=== PATIENT | female | born 1985 | race American Indian/Alaskan Native ===

== ENCOUNTER 2017-10-03 19:05 | Emergency (ER) | payer OTHER ==
[2017-10-03] MEDS ORDERED: TYLENOL PO ONE (21:22)
[2017-10-03] MEDS ORDERED: TYLENOL ONE (21:24)
[2017-10-03 22:01] LABS: Hematocrit 45.9 % (30.3-42.9); Hemoglobin 14.8 gm/dl (10.1-14.3); Mean Corpuscular HGB Conc 32 % (30-34); Mean Corpuscular Hemoglobin 26 pg (28-32); Mean Corpuscular Volume 79 fl (79-97); Platelet Count 203 K/mm3 (140-440); Red Blood Count 5.81 M/mm3 (3.65-5.03); Red Cell Distribution Width 14.8 % (13.2-15.2)
[2017-10-03 22:15] LABS: BUN/Creatinine Ratio 23; Blood Urea Nitrogen 9 mg/dL (7-17); Calcium 8.8 mg/dL (8.4-10.2); Hemolysis Index 46
[2017-10-03 22:28] LABS: Basophils % (Manual) 0 % (0.0-1.8); Eosinophils % (Manual) 0 % (0.0-4.3); Total Cells Counted 100
[2017-10-03 22:29] LABS: Anisocytosis 1+; Poikilocytosis 1+
--- NOTE | 2017-10-03 22:59 | XRay Report ---
FINAL REPORT PROCEDURE: AP and lateral chest x-ray TECHNIQUE: AP and lateral chest radiographs were obtained. CPT 96875 HISTORY: fever COMPARISON: No prior studies are available for comparison. FINDINGS: Heart: Magnified although appears to be enlarged.. Mediastinum/Vessels: Normal. Lungs/Pleural space: Normal. Bony thorax: No acute osseous abnormality. Other: IMPRESSION: Cardiomegaly. No acute abnormalities are identified. No focal infiltrates are seen..
--- NOTE | 2017-10-04 06:27 | Emergency Department Report ---
ED General Adult HPI - General Chief complaint: Nausea/Vomiting/Diarrhea Stated complaint: VICTORIA/DIARRHEA Time Seen by Provider: 10/04/17 06:15 Source: family Mode of arrival: Stretcher Limitations: No Limitations - History of Present Illness Initial comments: Patient states that she was diagnosed with pneumonia last Friday at [facility] in her friend and started on Augmentin. Within the next 24-48 hours she developed diarrhea. She feels like she's had a continued fever but has not taken her temperature. She reports no chills. She does not complain of dyspnea but does state that she has a productive cough which is sometimes white to yellow. She denies chest or abdominal pain other then some cramping associated with diarrhea. -: Gradual, days(s) Location: abdomen Radiation: non-radiation Quality: other Consistency: intermittent Improves with: none Worsens with: none Associated Symptoms: denies other symptoms, cough Treatments Prior to Arrival: none - Related Data Previous Rx's Medication Instructions Recorded Last Taken Type ALBUTEROL Inhaler [ProAir HFA 2 puff IH QID PRN #1 inhalation 06/13/15 Unknown Rx Inhaler] Amoxicillin/K Clav Tab [Augmentin 1 tab PO Q12HR #20 tab 06/13/15 Unknown Rx 875 mg] methylPREDNISolone [Medrol Dose 4 mg PO QAM #1 pack 06/13/15 Unknown Rx Emmanuel] Albuterol Sulfate [Albuterol 0.63% 0.63 mg IH Q4H PRN #25 neb 08/02/15 Unknown Rx NEBS] Albuterol Sulfate [Ventolin HFA] 2 puff IH Q4H PRN #1 hfa.aer.ad 08/02/15 Unknown Rx Loratadine [Claritin] 10 mg PO DAILY #30 tablet 08/02/15 Unknown Rx predniSONE [Deltasone] 20 mg PO TID #15 tab 08/02/15 Unknown Rx Diphenoxylate HCl/Atropine 1 each PO Q6H PRN #10 tablet 10/04/17 Unknown Rx [Lomotil 2.5-0.025 mg Tablet] Sulfamethoxazole/Trimethoprim 1 each PO BID #10 tablet 10/04/17 Unknown Rx [Bactrim DS TAB] Allergies Allergy/AdvReac Type Severity Reaction Status Date / Time No Known Allergies Allergy Verified 06/13/15 00:47 ED Review of Systems ROS: Stated complaint: VICTORIA/DIARRHEA Other details as noted in HPI Constitutional: fever (subjective). denies: chills Eyes: denies: eye pain, eye discharge, vision change ENT: denies: ear pain, throat pain Respiratory: cough. denies: shortness of breath, wheezing Cardiovascular: denies: chest pain, palpitations Endocrine: no symptoms reported Gastrointestinal: abdominal pain, diarrhea. denies: nausea Genitourinary: denies: urgency, dysuria, discharge Musculoskeletal: denies: back pain, joint swelling, arthralgia Skin: denies: rash, lesions Neurological: denies: headache, weakness, paresthesias Psychiatric: denies: anxiety, depression Hematological/Lymphatic: denies: easy bleeding, easy bruising ED Past Medical Hx - Past Medical History Hx Asthma: Yes (Bronchitis) - Surgical History Past Surgical History?: No - Social History Smoking Status: Never Smoker Substance Use Type: None - Medications Home Medications: Home Medications Medication Instructions Recorded Confirmed Last Taken Type ALBUTEROL Inhaler [ProAir HFA 2 puff IH QID PRN #1 inhalation 06/13/15 Unknown Rx Inhaler] Amoxicillin/K Clav Tab [Augmentin 1 tab PO Q12HR #20 tab 06/13/15 Unknown Rx 875 mg] methylPREDNISolone [Medrol Dose 4 mg PO QAM #1 pack 06/13/15 Unknown Rx Emmanuel] Albuterol Sulfate [Albuterol 0.63% 0.63 mg IH Q4H PRN #25 neb 08/02/15 Unknown Rx NEBS] Albuterol Sulfate [Ventolin HFA] 2 puff IH Q4H PRN #1 hfa.aer.ad 08/02/15 Unknown Rx Loratadine [Claritin] 10 mg PO DAILY #30 tablet 08/02/15 Unknown Rx predniSONE [Deltasone] 20 mg PO TID #15 tab 08/02/15 Unknown Rx Diphenoxylate HCl/Atropine 1 each PO Q6H PRN #10 tablet 10/04/17 Unknown Rx [Lomotil 2.5-0.025 mg Tablet] Sulfamethoxazole/Trimethoprim 1 each PO BID #10 tablet 10/04/17 Unknown Rx [Bactrim DS TAB] ED Physical Exam - General Limitations: No Limitations General appearance: alert, in no apparent distress - Head Head exam: Present: atraumatic, normocephalic - Eye Eye exam: Present: normal appearance. Absent: scleral icterus - ENT ENT exam: Present: mucous membranes moist - Neck Neck exam: Present: normal inspection - Respiratory Respiratory exam: Present: normal lung sounds bilaterally. Absent: respiratory distress - Cardiovascular Cardiovascular Exam: Present: regular rate, normal rhythm. Absent: systolic murmur, diastolic murmur, rubs, gallop - GI/Abdominal GI/Abdominal exam: Present: soft, normal bowel sounds. Absent: distended, tenderness, guarding, rebound, rigid - Extremities Exam Extremities exam: Present: normal inspection, full ROM, normal capillary refill. Absent: tenderness, pedal edema, joint swelling, calf tenderness - Back Exam Back exam: Present: normal inspection. Absent: CVA tenderness (R), CVA tenderness (L) - Neurological Exam Neurological exam: Present: alert, oriented X3, CN II-XII intact. Absent: motor sensory deficit - Psychiatric Psychiatric exam: Present: normal affect, normal mood - Skin Skin exam: Present: warm, dry, intact, normal color. Absent: rash ED Course Vital Signs 10/03/17 10/04/17 10/04/17 21:15 01:21 04:11 Temperature 99.6 F 99.4 F Pulse Rate 92 H 87 Respiratory 16 20 20 Rate Blood Pressure 138/86 Blood Pressure 140/86 [Right] O2 Sat by Pulse 95 98 Oximetry - Reevaluation(s) Reevaluation #1: Patient was found to have cardiomegaly on her chest x-ray. I pursued a BNP. It wasn't substantially elevated. She was hyponatremic. She was given IV fluid. Her appearance improved. She did have some diarrhea here but it was not confused. She is appropriate for outpatient management. She will be taken off Augmentin and placed on Bactrim. She will be referred for follow-up. 10/04/17 09:09 ED Medical Decision Making - Lab Data Result diagrams: 10/03/17 21:40 10/03/17 21:40 Laboratory Results - last 24 hr 10/03/17 10/03/17 21:40 21:40 WBC 4.3 L RBC 5.81 H Hgb 14.8 H Hct 45.9 H MCV 79 MCH 26 L MCHC 32 RDW 14.8 Plt Count 203 Add Manual Diff Complete Total Counted 100 Seg Neuts % (Manual) 86.0 H Band Neutrophils % 0 Lymphocytes % (Manual) 5.0 L Reactive Lymphs % (Man) 0 Monocytes % (Manual) 9.0 H Eosinophils % (Manual) 0 Basophils % (Manual) 0 Metamyelocytes % 0 Myelocytes % 0 Promyelocytes % 0 Blast Cells % 0 Nucleated RBC % Not Reportable Seg Neutrophils # Man 3.7 Band Neutrophils # 0.0 Lymphocytes # (Manual) 0.2 L Abs React Lymphs (Man) 0.0 Monocytes # (Manual) 0.4 Eosinophils # (Manual) 0.0 Basophils # (Manual) 0.0 Metamyelocytes # 0.0 Myelocytes # 0.0 Promyelocytes # 0.0 Blast Cells # 0.0 WBC Morphology Not Reportable Hypersegmented Neuts Not Reportable Hyposegmented Neuts Not Reportable Hypogranular Neuts Not Reportable Smudge Cells Not Reportable Toxic Granulation Not Reportable Toxic Vacuolation Not Reportable Dohle Bodies Not Reportable Pelger-Huet Anomaly Not Reportable Hussein Rods Not Reportable Platelet Estimate Appears normal Clumped Platelets Not Reportable Plt Clumps, EDTA Not Reportable Large Platelets Not Reportable Giant Platelets Not Reportable Platelet Satelliting Not Reportable Plt Morphology Comment Not Reportable RBC Morphology Not Reportable Dimorphic RBCs Not Reportable Polychromasia Not Reportable Hypochromasia Not Reportable Poikilocytosis 1+ Anisocytosis 1+ Microcytosis Few Macrocytosis Not Reportable Spherocytes Not Reportable Pappenheimer Bodies Not Reportable Sickle Cells Not Reportable Target Cells Not Reportable Tear Drop Cells Not Reportable Ovalocytes Not Reportable Helmet Cells Not Reportable [place]cleod-[place] Bodies Not Reportable [place] Rings Not Reportable [place] Cells Not Reportable Bite Cells Not Reportable Crenated Cell Not Reportable Elliptocytes Not Reportable Acanthocytes (Spur) Not Reportable Rouleaux Not Reportable Hemoglobin C Crystals Not Reportable Schistocytes Not Reportable Malaria parasites Not Reportable Berny Bodies Not Reportable Hem Pathologist Commnt No Sodium 132 L Potassium 4.4 Chloride 93.6 L Carbon Dioxide 23 Anion Gap 20 BUN 9 Creatinine 0.4 L Estimated GFR > 60 BUN/Creatinine Ratio 23 Glucose 107 H Calcium 8.8 Laboratory Results - last 24 hr 10/03/17 10/03/17 10/04/17 21:40 21:40 08:10 WBC 4.3 L RBC 5.81 H Hgb 14.8 H Hct 45.9 H MCV 79 MCH 26 L MCHC 32 RDW 14.8 Plt Count 203 Add Manual Diff Complete Total Counted 100 Seg Neuts % (Manual) 86.0 H Band Neutrophils % 0 Lymphocytes % (Manual) 5.0 L Reactive Lymphs % (Man) 0 Monocytes % (Manual) 9.0 H Eosinophils % (Manual) 0 Basophils % (Manual) 0 Metamyelocytes % 0 Myelocytes % 0 Promyelocytes % 0 Blast Cells % 0 Nucleated RBC % Not Reportable Seg Neutrophils # Man 3.7 Band Neutrophils # 0.0 Lymphocytes # (Manual) 0.2 L Abs React Lymphs (Man) 0.0 Monocytes # (Manual) 0.4 Eosinophils # (Manual) 0.0 Basophils # (Manual) 0.0 Metamyelocytes # 0.0 Myelocytes # 0.0 Promyelocytes # 0.0 Blast Cells # 0.0 WBC Morphology Not Reportable Hypersegmented Neuts Not Reportable Hyposegmented Neuts Not Reportable Hypogranular Neuts Not Reportable Smudge Cells Not Reportable Toxic Granulation Not Reportable Toxic Vacuolation Not Reportable Dohle Bodies Not Reportable Pelger-Huet Anomaly Not Reportable Hussein Rods Not Reportable Platelet Estimate Appears normal Clumped Platelets Not Reportable Plt Clumps, EDTA Not Reportable Large Platelets Not Reportable Giant Platelets Not Reportable Platelet Satelliting Not Reportable Plt Morphology Comment Not Reportable RBC Morphology Not Reportable Dimorphic RBCs Not Reportable Polychromasia Not Reportable Hypochromasia Not Reportable Poikilocytosis 1+ Anisocytosis 1+ Microcytosis Few Macrocytosis Not Reportable Spherocytes Not Reportable Pappenheimer Bodies Not Reportable Sickle Cells Not Reportable Target Cells Not Reportable Tear Drop Cells Not Reportable Ovalocytes Not Reportable Helmet Cells Not Reportable Mcleod-[place] Bodies Not Reportable [place] Rings Not Reportable [place] Cells Not Reportable Bite Cells Not Reportable Crenated Cell Not Reportable Elliptocytes Not Reportable Acanthocytes (Spur) Not Reportable Rouleaux Not Reportable Hemoglobin C Crystals Not Reportable Schistocytes Not Reportable Malaria parasites Not Reportable Berny Bodies Not Reportable Hem Pathologist Commnt No PT 14.3 INR 1.06 APTT 32.0 Sodium 132 L Potassium 4.4 Chloride 93.6 L Carbon Dioxide 23 Anion Gap 20 BUN 9 Creatinine 0.4 L Estimated GFR > 60 BUN/Creatinine Ratio 23 Glucose 107 H Lactic Acid Calcium 8.8 Magnesium Total Bilirubin Direct Bilirubin Indirect Bilirubin AST ALT Alkaline Phosphatase NT-Pro-B Natriuret Pep Total Protein Albumin Albumin/Globulin Ratio 10/04/17 10/04/17 08:10 08:10 WBC RBC Hgb Hct MCV MCH MCHC RDW Plt Count Add Manual Diff Total Counted Seg Neuts % (Manual) Band Neutrophils % Lymphocytes % (Manual) Reactive Lymphs % (Man) Monocytes % (Manual) Eosinophils % (Manual) Basophils % (Manual) Metamyelocytes % Myelocytes % Promyelocytes % Blast Cells % Nucleated RBC % Seg Neutrophils # Man Band Neutrophils # Lymphocytes # (Manual) Abs React Lymphs (Man) Monocytes # (Manual) Eosinophils # (Manual) Basophils # (Manual) Metamyelocytes # Myelocytes # Promyelocytes # Blast Cells # WBC Morphology Hypersegmented Neuts Hyposegmented Neuts Hypogranular Neuts Smudge Cells Toxic Granulation Toxic Vacuolation Dohle Bodies Pelger-Huet Anomaly Hussein Rods Platelet Estimate Clumped Platelets Plt Clumps, EDTA Large Platelets Giant Platelets Platelet Satelliting Plt Morphology Comment RBC Morphology Dimorphic RBCs Polychromasia Hypochromasia Poikilocytosis Anisocytosis Microcytosis Macrocytosis Spherocytes Pappenheimer Bodies Sickle Cells Target Cells Tear Drop Cells Ovalocytes Helmet Cells Mcleod-[place] Bodies [place] Rings [place] Cells Bite Cells Crenated Cell Elliptocytes Acanthocytes (Spur) Rouleaux Hemoglobin C Crystals Schistocytes Malaria parasites Berny Bodies Hem Pathologist Commnt PT INR APTT Sodium Potassium Chloride Carbon Dioxide Anion Gap BUN Creatinine Estimated GFR BUN/Creatinine Ratio Glucose Lactic Acid 1.40 Calcium Magnesium 1.90 Total Bilirubin 0.60 Direct Bilirubin 0.3 H Indirect Bilirubin 0.3 AST 58 H ALT 40 Alkaline Phosphatase 158 H NT-Pro-B Natriuret Pep 196.5 Total Protein 6.9 Albumin 3.2 L Albumin/Globulin Ratio 0.9 Critical care attestation.: If time is entered above; I have spent that time in minutes in the direct care of this critically ill patient, excluding procedure time. ED Disposition Clinical Impression: Hyponatremia, Volume depletion, Cardiomegaly, Bronchitis Diarrhea Qualifiers: Diarrhea type: unspecified type Qualified Code(s): R19.7 - Diarrhea, unspecified Disposition: DC-01 TO HOME OR SELFCARE Is pt being admited?: No Does the pt Need Aspirin: No Condition: Stable Instructions: Chronic Bronchitis (ED) Additional Instructions: Follow up with a primary care provider. Return any acute change or problem. Light diet and advance as tolerated. Rx as directed. Prescriptions: Diphenoxylate HCl/Atropine [Lomotil 2.5-0.025 mg Tablet] 1 each PO Q6H PRN #10 tablet PRN Reason: diarrhea Sulfamethoxazole/Trimethoprim [Bactrim DS TAB] 1 each PO BID #10 tablet Referrals: PRIMARY CAREMD [Primary Care Provider] - 3-5 Days [facility] [Provider Group] - 3-5 Days Time of Disposition: 09:11
[2017-10-04] MEDS ORDERED: NACL 0.9% 1000 ML 1,000 ML IV ONE ×2 (06:28→06:55)
[2017-10-04 08:32] LABS: INR 1.06 (0.87-1.13)
[2017-10-04] MEDS ORDERED: IMODIUM ONE (08:32)
[2017-10-04 08:42] LABS: Albumin 3.2 g/dL (3.9-5); Bilirubin,Direct 0.3 mg/dL (0-0.2); Magnesium 1.9 mg/dL (1.7-2.3)
[2017-10-04] MEDS ORDERED: IMODIUM PO ONE (09:36)
[2017-10-04 10:14] LABS: Creatine Kinase MB 1.3 ng/mL (0.0-4.0)
[2017-10-04 11:32] LABS: HCG Qualitative,Urine Negative (Negative)
[2017-10-04 11:33] LABS: Bacteria,Urine 2+ /HPF (Negative); Bilirubin,Urine NEG (Negative); Blood,Urine SM (Negative); Color,Urine Yellow (Yellow); Mucus,Urine FEW /HPF; Nitrite,Urine NEG (Negative); Protein,Urine <15 mg/dL mg/dL (Negative); Urobilinogen,Urine < 2.0 mg/dL (<2.0)
[2017-10-04 12:33] VITALS: BP 128/74
== END 2017-10-04 12:37 | disposition home or self-care (01) ==
LOC: ED 19:05
DX: E86.9 Volume depletion, unspecified (principal); E87.1 Hypo-osmolality and hyponatremia; I51.7 Cardiomegaly; J45.909 Unspecified asthma, uncomplicated; R19.7 Diarrhea, unspecified
CPT/HCPCS: 36415; 71046; 80048; 80074; 81001; 81025; 82140; 82550; 82553; 83735; 83880; 84484; 85007; 85025; 85610; 85730; 96360; 99284; J7030